=== PATIENT | male | born 1970 | race Caucasian/White ===

== ENCOUNTER → 2021-02-25 16:46 | Outpatient (CLI) | payer BC, SELFPAY | PROVIDERS: Visit Provider Podiatrist | DX: B35.1 Tinea unguium (principal) | CPT/HCPCS: 87220 ==

== ENCOUNTER 2024-06-10 11:05 | Outpatient (CLI) | payer BC, SELFPAY ==
[2024-06-10 11:10] VITALS: BMI 33.7
--- NOTE | 2024-06-10 11:15 | PC.NURSE ---
1115 - Blood drawn from left AC to check H/H to determine if pt needs therapeutic phlebotomy.
[2024-06-10 11:22] LABS: Hematocrit 47.1 % (42.0-52.0); Hemoglobin 16.8 g/dL (14.1-18.0)
== END 2024-06-10 12:15 | disposition home or self-care (01) ==
LOC: INF 11:09
PROVIDERS: PCP Family Medicine; Visit Provider Family Medicine
DX: L60.8 Other nail disorders (principal); B35.1 Tinea unguium
CPT/HCPCS: 36415; 85014; 85018; 99195

== ENCOUNTER 2024-07-08 11:06 | Outpatient (CLI) | payer BC, SELFPAY ==
[2024-07-08 11:17] VITALS: BMI 33.7
[2024-07-08 11:31] LABS: Hematocrit 47.5 % (42.0-52.0); Hemoglobin 16.2 g/dL (14.1-18.0)
[2024-07-08 11:45] VITALS: BP 126/74; PULSE 63; RESP 18; TEMP 36.3; O2SAT 100
[2024-07-08 12:00] VITALS: BP 124/79; PULSE 74; RESP 18; O2SAT 99
== END 2024-07-08 12:00 | disposition home or self-care (01) ==
LOC: INF 11:07
PROVIDERS: PCP Family Medicine; Visit Provider Family Medicine
DX: D75.1 Secondary polycythemia (principal)
CPT/HCPCS: 36415; 85014; 85018; 99195

== ENCOUNTER 2024-08-05 12:43 | Outpatient (CLI) | payer BC, SELFPAY ==
--- OUTSIDE RECORDS SUMMARY | 2024-07-18 06:37 | XMS_ITS | Continuity of Care Document ---
Author Organization [facility] Phone Care Team Providers Care Anode Worker Name Role Phone LOLLY CORTES Unavailable LOLLY CORTES Primary Care LOLLY CORTES Admitting LOLLY CORTES Primary Attending ALLERGIES AND ADVERSE REACTIONS ALLERGIES AND ADVERSE REACTIONS Code System Allergy Substance Adverse Reaction Date Reaction (Severity) Comment Status Reported By Updated By No Known Allergies FAMILY HISTORY RELATION: Father Status: Cause of : Unknown Age at : Unknown SNOMED-CT Diagnosis Age At Onset Information not available RELATION: Mother Status: Cause of : Unknown Age at : Unknown SNOMED-CT Diagnosis Age At Onset Information not available RESULTS Patient: TRIP Devine Date of : September 30 LABORATORY RESULTS Information is not available LABORATORY NARRATIVE RESULTS Information is not available RADIOLOGY RESULTS ORDER 100: CERVICL 2 TO 3V ( LOINC: 73619-8) ORDER DATE: July 14, 2024 4:17:00 PM [facility] PERFORMING LAB: [address] [id number] Final Result Date: July 14 4:35:00 PM [address] [place] [address] Name: MADELINE DOMINIQUE Exam Date: 07/14/2024 : 1970 Age 53 years Gender: M Physician: LOLLY CORTES Facility: [facility] Facility HSV: Outpatient Exam: CERVICL 2 TO 3V Cervical spine 3 views HISTORY: Neck pain TECHNIQUE: 3 views performed FINDINGS: Mild degenerative changes in the cervical spine. No fracture or malalignment. Soft tissues are normal. IMPRESSION: Mild DJD Electronically signed by: Luis Armando Sorensen MD 07/15/2024 04:26 PM EDT RP Dictated By: LUIS ARMANDO SORENSEN Transcribed By: Transcribed On: 07/14/2024 12:35 PM Electronically signed by: LUIS ARMANDO SORENSEN 07/14/2024 Thank you for referring MADELINE DOMINIQUE to [facility]. Legally authenticated by FRANCHESCA DURÁN MD 2024-07-14 12:35:00 ORDER 200: LUMBAR 2 TO 3V (L OINC: [id number]) ORDER DATE: July 14, 2024 4:17:00 PM [facility] PERFORMING LAB: [address] [id number] Final Result Date: July 14 4:35:[address] [place] [address] Name: MADELINE DOMINIQUE Exam Date: 07/14/2024 : 1970 Age 53 years Gender: M Physician: LOLLY CORTES Facility: [facility] Facility HSV: Outpatient Exam: LUMBAR 2 TO 3V XR LUMBAR SPINE 2-3 VIEWS Reason For Study: neck and low back pain COMPARISON:None TECHNIQUE: 3 views were obtained. AP , spot lateral and lateral views of the lumbar spine were obtained. FINDINGS Mild degenerative changes except L5-S1 moderate degenerative changes are present. No fracture or malalignment. SI joints intact. IMPRESSION: Degenerative changes. Electronically signed by: Luis Armando Sorensen MD 07/15/2024 04:26 PM EDT RP Dictated By: LUIS ARMANDO SORENSEN Transcribed By: Transcribed On: 07/14/2024 12:35 PM Electronically signed by: LUIS ARMANDO SORENSEN 07/14/2024 Thank you for referring MADELINE DOMINIQUE to [facility]. Legally authenticated by FRANCHESCA DURÁN MD 2024-07-14 12:35:00 PATHOLOGY NARRATIVE RESULTS Information is not available MICROBIOLOGY RESULTS No Micro Labs/Results Exist for Patient BLOOD ADMIN RESULTS Information is not available MEDICATIONS HOME MEDICATIONS Status RXNORM NDC Medication Dose Route Frequency Dates Comments Reported By Updated By Drug Treatment Unknown DISCHARGE MEDICATIONS Status RXNORM NDC Medication Dose Route Frequency Dates Comments Physician Updated By No Discharge Medication Info rmation Available INPATIENT MEDICATIONS Status RXNORM NDC Medication Dose Route Frequency Rat e Quantity Dates Comments Physician Updated By No Inpatient Medication Info rmation Available SOCIAL HISTORY SOCIAL HISTORY SNOMED-CT Social History Element Description Effective Dates Offered Cessation Comment UpdatedBy [id number] Historical Tobacco smoking status Never Smoked Not Applicable [id number] on May 24, 2020 1:02:42 PM [facility] SOCIAL HISTORY - Gender Sex: Male SOCIAL HISTORY - Status : status i nformation is not available Intention in Next Year: intention information is not available SOCIAL HISTORY - Sexual Behavior Sexual Orientation Gender Identity SNOMED-CT Description SNO MED -CT Description Activity Level No of Partners Partner Type UpdatedBy Information is not available HEALTH CONCERNS Problems Concern Status Health Concern problem infor mation not available. Smoking Status Status Years Used Consumed packs p er day Health Concern smoking histo ry information not available. Family History Concern Status Health Concern family histor y information not available. ENCOUNTERS ENCOUNTER INFORMATION Reason for Visit NECK PAIN Admission July 14, 2024 4:01:[address] [id number] Discharge July 14, 2024 4:01:00 PM [facility] DISC HARGED TO HOME OR SELF CARE ENCOUNTER DIAGNOSES Notes information is not christina ilable. Code System Diagnosis Onset Date Diagnosis information is not available. ABSTRACT DIAGNOSES Code System Diagnosis Updated By M54.2 ICD10 CERVICALGIA [id number] on July 18, 2024 10:36:49 AM [facility] M54.9 ICD10 DORSALGIA, UNSPECIFIED [id number] on July 18, 2024 10:36:49 AM [facility] M47.816 ICD10 SPONDYLOSIS WITH OUT MYELOPATHY OR RADICULOPATHY, LUMBAR REGION [id number] on July 18, 2024 10:36:50 AM [facility] M47.812 ICD10 SPONDYLOSIS WITH OUT MYELOPATHY OR RADICULOPATHY, CERVICAL REGION [id number] on July 18, 2024 10:36:50 AM [facility] M54.2 ICD10 CERVICALGIA [id number] on July 18, 2024 10:36:50 AM [facility] M54.9 ICD10 DORSALGIA, UNSPECIFIED [id number] on July 18, 2024 10:36:50 AM [facility] CARE TEAM Care Anode Worker Role LOLLY CORTES Referring LOLLY CORTES Primary Care LOLLY CORTES Admitting LOLLY CORTES Primary Attending CARE TEAM CARE flavoring oil filterer Role on Team Status Start Date End Date Update d By SEBASTIAN CHAVEZ PCP normal July 14, 2024 4:00:00 AM [facility] July 14, 2024 4:01:00 PM [facility] [id number] on July 14, 2024 4:01:50 PM [facility] SEBASTIAN CHAVEZ Referring normal July 14, 2024 4:00:00 AM [facility] July 14, 2024 4:01:00 PM [facility] [id number] on July 14, 2024 4:01:50 PM [facility] SEBASTIAN CHAVEZ Attending normal July 14, 2024 4:00:00 AM [facility] July 14, 2024 4:01:00 PM [facility] [id number] on July 14, 2024 4:01:50 PM [facility] SEBASTIAN CHAVEZ Admitting normal July 14, 2024 4:00:00 AM [facility] July 14, 2024 4:01:00 PM [facility] [id number] on July 14, 2024 4:01:50 PM [facility]
[2024-08-05 12:47] VITALS: BMI 33.7
[2024-08-05 13:00] LABS: Hematocrit 43.2 % (42.0-52.0); Hemoglobin 14.8 g/dL (14.1-18.0)
== END 2024-08-05 13:40 | disposition home or self-care (01) ==
LOC: INF 12:43
PROVIDERS: PCP Family Medicine; Visit Provider Family Medicine
DX: D45 Polycythemia vera (principal)
CPT/HCPCS: 36415; 85014; 85018; 99195

== ENCOUNTER 2024-09-01 11:43 | Outpatient (CLI) | payer BC, SELFPAY ==
--- OUTSIDE RECORDS SUMMARY | 2024-09-01 11:45 | XMS_ITS | Clinical Summary ---
[facility] [address] [place] [address] Care Team Providers Care Hydrometallurgical Engineer Name Role Phone Kandy Soares DO Primary Care Provider [phone] Allergies No known active allergies Medications Armodafinil 250 MG tablet 02/12/2019 Active Family History Medical History Relation Name Comments Lung cancer Mother Relation Name Status Comments Mother Social History Tobacco Use Types Packs/Day Years Used Date Smoking Tobacco: Never Abuse Screen Answer Date Recorded Unsafe at Home or Work/School Not on file Feels Threatened by Someone? Not on file 01/2023 Does Anyone Keep You from Co ntacting Others or Doint Things Outside the Home? Not on file 11/20/2022 Physical Sign of Abuse Present Not on file 1 Housing Stability Answer Date Recorded Current Living Arrangements Not on file 11/09 Potentially Unsafe Housing Conditions Not on kevin e 11/20/2022 Family and Community Support Answer Jerome e Recorded Help with Day-to-Day Activities Not on file 11/20/2022 Lonely or Isolated Not on file 11/20/2022 Employment Answer Date Recorded Do you want help finding or keeping work or a clarice b? Not on file 11/20/2022 Disabilities Answer Date Recorded Concentrating, Remembering, or Making Decisions Difficulty Not on file 11/20/2022 Doing Errands Independently Difficulty Not on fi le 11/20/2022 Education Answer Date Recorded Help with school or training? Not on file Preferred Language Not on file 11/20/2022 Sex and Gender Information Value Date Recorded Sex Assigned at Not on file Legal Sex Male 3:19 PM EST Gender Identity Not on file Sexual Orientation Not on file Last Filed Vital Signs Vital Sign Reading Time Taken Comments Blood Pressure 130/90 02/18/2019 3:42 PM EST Pulse 92 02/18/2019 3:42 PM EST Temperature 37.8 C (100.1 F) 02/18/2019 3:42 PM EST Respiratory Rate 16 02/18/2019 3:42 PM EST Oxygen Saturation 97% 02/18/2019 3:42 PM EST Inhaled Oxygen Concentration - - Weight 108 kg (238 lb) 02/18/2019 3:42 PM EST Height 179.1 cm (5' 10.5 ) 02/18/2019 3:42 PM ES T Body Mass Index 33.67 02/18/2019 3:42 PM EST Plan of Treatment Health Maintenance Due Date Last Done Comments TDAP/TD VACCINES (1 - Tdap) 1988 COLOGUARD 2014 COLON CANCER SCREENING 5 YEAR SIGMOIDOSCOPY 2014 COLONOSCOPY [address] S[address]ING [address] COLONOGRAPHY 2014 FECAL OCCULT BLOOD TEST 2014 FIT Testing (1 year) 2014 ANNUAL PHYSICAL 02/18/2019 HEPATITIS C SCREENING 02/18/2019 Pneumococcal Vaccine 50+ (1 of 1 - PCV) 10/01/2019 ZOSTER VACCINE (1 of 2) 10/01/2019 COVID-19 Vaccine (1 - 2023- season) 2023 INFLUENZA VACCINE 11/09/2024 Insurance Care Teams Hydrometallurgical Engineer Relationship Specialty Start Date End Date Kandy Soares DO [facility] [place] [address] PCP - General Family Medicine 05/31/24
[2024-09-01 11:47] VITALS: BMI 33.7
[2024-09-01 12:01] LABS: Hematocrit 47.2 % (42.0-52.0); Hemoglobin 16.3 g/dL (14.1-18.0)
--- NOTE | 2024-09-01 12:22 | PC.NURSE ---
1153 H&H obtained via venipuncture to R hand x1 stick with butterfly needle. Patient tolerated well.
== END 2024-09-01 12:35 | disposition home or self-care (01) ==
LOC: INF 11:43
PROVIDERS: PCP Family Medicine; Visit Provider Family Medicine
DX: D45 Polycythemia vera (principal)
CPT/HCPCS: 36415; 85014; 85018

== ENCOUNTER 2024-12-15 11:44 | Outpatient (CLI) | payer BC, SELFPAY ==
--- OUTSIDE RECORDS SUMMARY | 2024-12-15 11:46 | XMS_ITS | Clinical Summary ---
[facility] [address] [place] [address] Care Team Providers Care Systems Programmer Name Role Phone Kandy Soares DO Primary Care Provider [phone] [phone] Allergies No known active allergies Medications Armodafinil [...] 10/01/2019 ZOSTER VACCINE (1 of 2) 10/01/2019 INFLUENZA VACCINE 09/09/2024 Insurance Member Subscriber Plan / Payer (Ef fective 2016-Present) Name:Enio Tran Relation to Subscriber:Self Name:Enio Tran Payer ID:[id number] (NAIC) Type:Not on file Address: [facility] [id number] [id number] Care Teams Systems Programmer Relationship Specialty Start Date End Date Kandy Soares DO [address] [place] [address] (work) PCP - General Family Medicine 05/31/24
[2024-12-15 12:02] LABS: Hematocrit 50.1 % (42.0-52.0); Hemoglobin 17.3 g/dL (14.1-18.0)
--- NOTE | 2024-12-15 12:47 | PC.NURSE ---
1155-Blood drawn from left AC to check Hgb/Hct.
== END 2024-12-15 23:59 | disposition home or self-care (01) ==
LOC: INF 11:45
PROVIDERS: PCP Family Medicine; Visit Provider Family Medicine
DX: D75.1 Secondary polycythemia (principal)
CPT/HCPCS: 36415; 85014; 85018; 99195

== ENCOUNTER 2025-01-10 11:45 | Outpatient (CLI) | payer BC, SELFPAY ==
[2025-01-10 11:47] VITALS: BMI 33.7
--- OUTSIDE RECORDS SUMMARY | 2025-01-10 11:47 | XMS_ITS | Clinical Summary ---
[facility] [address] [place] [address] Care Team Providers Care Automobile Dealer Name Role Phone Kandy Soares DO Primary Care Provider [phone] [phone] Allergies No known active allergies Medications Armodafinil [...] Payer ID:[id number] (NAIC) Type:Not on file Address: [facility] [id number] [id number] Care Teams Automobile Dealer Relationship Specialty Start Date End Date Kandy Soares DO [address] [place] [address] (work) PCP - General Family Medicine 05/31/24
[2025-01-10 12:04] LABS: Hematocrit 50.3 % (42.0-52.0); Hemoglobin 17.3 g/dL (14.1-18.0)
--- NOTE | 2025-01-10 12:49 | PC.NURSE ---
1150 H&H collected via venipuncture to R AC x1 stick with butterfly needle. Patient here for possible therapeutic phlebotomy. Patient tolerated well.
== END 2025-01-10 23:59 | disposition home or self-care (01) ==
LOC: INF 11:46
PROVIDERS: PCP Family Medicine; Visit Provider Family Medicine
DX: D75.1 Secondary polycythemia (principal)
CPT/HCPCS: 36415; 85014; 85018